=== PATIENT | male | born 1955 | race Two or more races ===

== ENCOUNTER → 2017-07-09 | Outpatient (CLI) | payer MEDICARE, BC | END | disposition home or self-care (01) | LOC: HKI 11:12 | DX: I10 Essential (primary) hypertension (principal); M16.0 Bilateral primary osteoarthritis of hip; E11.9 Type 2 diabetes mellitus without complications; Z79.84 Long term (current) use of oral hypoglycemic drugs | CPT/HCPCS: 73502 ==